=== PATIENT | male | born 1975 ===

== ENCOUNTER 2016-08-29 13:40 | Emergency (ER) | payer MEDICAID, OTHER ==
[2016-08-29 13:58] VITALS: TEMP 97.6
--- NOTE | 2016-08-29 14:38 | C.PDOC ---
History Of Present Illness Patient is a 41 year old male who presents to the ER with a complaint of new onset bilateral shoulder pain for the past 2 weeks. Patient reports the pain worsens when he attempts to elevate his arms. Patient has not tried taking any medication for the pain. Denies PMHx of chronic shoulder pain or trauma. Time Seen by Provider: 08/29/16 14:01 Chief Complaint (Nursing): Upper Extremity Problem/Injury History Per: Patient History/Exam Limitations: no limitations Onset/Duration Of Symptoms: Days (14) Current Symptoms Are (Timing): Still Present Exacerbating Factor(s): Other (Elevation of arms) Past Medical History Reviewed: Historical Data, Nursing Documentation, Vital Signs Vital Signs: Last Vital Signs Temp 97.6 F 08/29/16 13:56 Pulse 72 08/29/16 14:58 Resp 18 08/29/16 14:58 BP 124/75 08/29/16 14:58 Pulse Ox 98 08/29/16 14:58 - Medical History PMH: No Chronic Diseases - [facility] Procedures ASSISTANCE WITH RESPIRATORY VENTILATION, 24-96 HRS, CPAP (01/02/16) DRAINAGE OF SPINAL CANAL, PERCUTANEOUS APPROACH, DIAGNOSTIC (01/02/16) Family History: States: Unknown Family Hx - Social History Hx Tobacco Use: No Hx Alcohol Use: No Hx Substance Use: No - Immunization History Hx Tetanus Toxoid Vaccination: No Hx Influenza Vaccination: No (up to date) Hx Pneumococcal Vaccination: No Review Of Systems Except As Marked, All Systems Reviewed And Found Negative. Musculoskeletal: Positive for: Shoulder Pain (Bilateral) Physical Exam - Physical Exam Appears: Non-toxic, No Acute Distress Skin: Normal Color, Warm, Dry Head: Atraumatic, Normacephalic Oral Mucosa: Moist Respiratory: Other (Patient speaking in complete sentences, no respiratory distress.) Extremity: Bilateral: Other (Shoulders, limited full flexion & external rotation. Full extention and abduction.) Neurological/Psych: Oriented x3, Normal Speech, Normal Cognition ED Course And Treatment O2 Sat by Pulse Oximetry: 99 (Room air) Pulse Ox Interpretation: Normal - Other Rad Bilateral shoulder x-rays X-Ray: Interpreted by Me, Viewed By Me Interpretation: No acute abnormalities. Progress Note: Toradol and bilateral shoulder x-rays ordered. Disposition Counseled Patient/Family Regarding: Studies Performed, Diagnosis, Need For Followup, Rx Given - Disposition Referrals: [facility] [Outside] [facility] [Outside] Disposition: HOME/ ROUTINE Disposition Time: 14:37 Condition: IMPROVED Prescriptions: Cyclobenzaprine [Flexeril] 10 mg PO TID #15 tab Ibuprofen [Motrin] 600 mg PO Q6 #30 tab Instructions: Rotator Cuff Tendinitis (ED) - Clinical Impression Clinical Impression: Shoulder pain, bilateral - Scribe Statement The provider has reviewed the documentation as recorded by the Scribmilagro Bahena All medical record entries made by the Troyibmilagro were at my direction and personally dictated by me. I have reviewed the chart and agree that the record accurately reflects my personal performance of the history, physical exam, medical decision making, and the department course for this patient. I have also personally directed, reviewed, and agree with the discharge instructions and disposition.
[2016-08-29 14:58] VITALS: BP 124/75; PULSE 72; RESP 18
[2016-08-29 15:18] VITALS: O2SAT 99
--- NOTE | 2016-08-29 17:44 | RAD ---
PROCEDURE: Radiographs of both shoulders HISTORY: r/o fracture/dislocation COMPARISON: No prior. FINDINGS: BONES: Right shoulder: Normal. No fracture. Left shoulder: Normal. No fracture. JOINTS: Right shoulder: Normal. No significant osteoarthritic changes. Left shoulder: Normal. No significant osteoarthritic changes. SOFT TISSUES: Right shoulder: Grossly unremarkable. Right shoulder: Grossly unremarkable. OTHER FINDINGS: None. IMPRESSION: No evidence of acute displaced fracture nor dislocation. No significant osteoarthritis
== END 2016-08-29 14:59 | disposition home or self-care (01) ==
LOC: C.ER 13:40
DX: M25.511 Pain in right shoulder (principal); M25.512 Pain in left shoulder
CPT/HCPCS: 73030; 96372; 99284; J1885

== ENCOUNTER 2017-06-28 00:41 | Emergency (ER) | payer OTHER ==
[2017-06-28] MEDS ORDERED: Bacitracin 500 Units/gm Oint Foilpak UD TOP ONE (02:02)
[2017-06-28] MEDS ORDERED: Tdap Vaccine 0.5 ml Vial (10-64 yrs) IM ONE ×2 (02:02→02:14)
[2017-06-28] MEDS ORDERED: Bacitracin 500 Units/gm Oint Foilpak UD ONE (02:15)
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
[2017-06-28 03:19] VITALS: BP 130/89; PULSE 80; RESP 18; TEMP 98
[2017-06-28 03:33] VITALS: O2SAT 97
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
== END 2017-06-28 03:37 | disposition home or self-care (01) ==
LOC: C.ER 00:41
DX: S60.511A Abrasion of right hand, initial encounter (principal); S60.410A Abrasion of right index finger, initial encounter; Y04.0XXA Assault by unarmed brawl or fight, initial encounter